=== PATIENT | female | born 1995 | race Two or more races ===

== ENCOUNTER 2016-12-24 17:37 | Emergency (ER) | payer OTHER ==
[~2016-12-24] VITALS: Ht 175.3 cm; Wt 90.7 kg
[2016-12-24 17:58] VITALS: BP 125/70
[2016-12-24] MEDS ORDERED: cefTRIAXone SOD 1,000 MG VL ONE (18:52)
[2016-12-24] MEDS ORDERED: AZITHROMYCIN 250 MG TAB PO ONE (19:15)
[2016-12-24] MEDS ORDERED: cefTRIAXone SODIUM 250 MG VL IM ONE (19:15)
== END 2016-12-24 20:10 | disposition home or self-care (01) ==
LOC: ER 18:02
DX: B00.1 Herpesviral vesicular dermatitis (principal); Z20.2 Contact with and (suspected) exposure to infections with a predominantly sexual mode of transmission
CPT/HCPCS: 96372; 99283; J0696

== ENCOUNTER 2017-01-30 06:57 | Emergency (ER) | payer MEDICAID ==
[~2017-01-30] VITALS: Ht 175.3 cm; Wt 90.7 kg
[2017-01-30 08:29] LABS: Basophils # (auto) 0 uL; Basophils % (auto) 0.2 % (0.0-2.0); DEFINITIVE VIEW TRANSMISSION; Eosinophils # (auto) 0.1 uL; Eosinophils % (auto) 1.8 % (0.0-7.0); Hematocrit 37.2 % (36.0-46.0); Hemoglobin 12.1 g/dL (12.2-16.2); Lymphocytes # (auto) 1.3 uL; Mean Corpuscular Hemoglobin 25.4 pg (28.0-32.0); Mean Corpuscular Hgb Conc. 32.4 g/dL (32.0-36.0); Mean Corpuscular Volume 78.2 fL (80.0-100.0); Mean Platelet Volume 11.4 fL (7.4-10.4); Monocytes # (auto) 0.2 uL; Monocytes % (auto) 3.7 % (0.0-12.0); Neutrophils # (auto) 4.1 uL; Neutrophils % (auto) 72.3 % (37.0-80.0); Platelet Count (auto) 233 10^3/uL (140-450); Red Cell Distribution Width 15.4 % (11.6-16.0); SUSPECT VIEW TRANSMISSION; White Blood Cell 5.7 10^3/uL (4.4-10.8)
[2017-01-30] MEDS ORDERED: SODIUM CHLORIDE 0.9% 1,000 ML IVB ONE (08:59)
[2017-01-30 09:23] LABS: Urine RBC None Seen /hpf (0 - 4)
[2017-01-30 09:31] LABS: BUN/Creatinine Ratio 13.8; Calcium 8.4 mg/dL (8.5-10.1); Magnesium 2.1 mg/dL (1.6-2.6); Potassium 3.7 mmol/L (3.5-5.1)
[2017-01-30 09:50] LABS: Urine Bilirubin Negative (Negative); Urine Blood Negative /uL (Negative); Urine Color Yellow (Yellow); Urine Glucose Normal (Normal); Urine Ketone Negative (Negative); Urine Nitrite Negative (Negative); Urine Squamous Epithelial Cell FEW /hpf (<5); Urine Urobilinogen Normal (Negative)
[2017-01-30] MEDS ORDERED: PROMETHAZINE HCL 25 MG/ML 1ML IV ONE (12:00)
[2017-01-30] MEDS ORDERED: NALBUPHINE HCL 10 MG/1ml INJECTION IV ONE (12:00)
[2017-01-30 13:30] VITALS: BP 124/82
== END 2017-01-30 15:35 | disposition home or self-care (01) ==
LOC: ER 06:57
DX: K29.01 Acute gastritis with bleeding (principal); N39.0 Urinary tract infection, site not specified; E66.9 Obesity, unspecified; Z68.29 Body mass index [BMI] 29.0-29.9, adult
CPT/HCPCS: 36415; 80048; 81001; 83690; 83735; 84443; 84702; 85025; 96361; 96374; 96375; 99284; J2300; J2550; J7030